=== PATIENT | male | born 1975 ===

== ENCOUNTER → 2018-06-08 | Day surgery (SDC) | payer OTHER ==
[~2018-06-08] VITALS: Ht 182.9 cm; Wt 163.3 kg
[2018-06-08] VITALS (12 sets, daily range): BP systolic 128–165; BP diastolic 48–99
[~2018-06-08] MED LIST: Bupivacaine 0.5% Inj 30 ml vial INJ ONE; Bupivacaine w/Epi 0.25% 30ml Vial INJ ONE; D5 1/2NS 1,000 ML IV SCH; DiphenhydrAMINE 50mg/ml Inj IVP PRN; Duramorph PF 10mg/10ml amp EPIDUR ONE; HYDROmorphone 1mg/ml Carpuject SUBQ PRN; Kenalog-40 1ml Vial ONE; Ketorolac 30mg Inj IV PRN; Ketorolac 30mg Inj ONE; LR 1000ml 1,000 ML IVLG SCH; LR 1000ml ONE; Lidocaine 1% 10mg/ml/Epi 0.005mg/ml 30ml vial INJ ONE; Lidocaine 1% MPF 10mg/ml 5ml ONE; Meperidine 50mg/ml Inj(FOR RIGORS ONLY) IV PRN; Midazolam 2mg/2ml Inj ONE; Morphine Sulfate PF 10 ML ONE; NKM; NS Irrig 4000ml IRRIG ONE; Norco 5mg/325mg tab ORAL PRN; Propofol 200mg/20ml IV ONE; Tylenol #3 tab (300mg/30mg) ORAL PRN; ceFAZolin 1gm IVPB IVPB ONE; celeBREX 200mg Cap **SURGERY PATIENTS ONLY ORAL ONE; fentaNYL 100 mcg/2 mL IV ONE; oxyCONTIN 20mg tab ORAL ONE
--- NOTE | 2018-06-08 07:15 | Anethesia Preoperative Eval ---
Anesthesia Pre-op PMH/ROS General Date of Evaluation: Jun 08, 2018 Time of Evaluation: 07:11 Anesthesiologist: Kasey ASA Score: ASA 3 Mallampati Score Class I : Soft palate, uvula, fauces, pillars visible Class II: Soft palate, uvula, fauces visible Class III: Soft palate, base of uvula visible Class IV: Only hard plate visible Mallampati Classification: Class III Surgeon: Colby Diagnosis: L knee pain Surgical Procedure: L knee scope Anesthesia History: none Family History: no anesthesia problems Allergies: Coded Allergies: No Known Allergies (Unverified , 06/07/18) Medications: see eMAR Patient NPO?: Yes Past Medical History Cardiovascular: Reports: HTN - no treatment; Denies: CAD, [place], valve dz, arrhythmia, other Pulmonary: Reports: ALE; Denies: asthma, COPD, other Gastrointestinal/Genitourinary: Reports: GERD; Denies: CRI, ESRD, other Neurologic/Psychiatric: Denies: dementia, CVA, depression/anxiety, TIA, other Endocrine: Denies: DM, hypothyroidism, steroids, other HEENT: Denies: cataract (L), cataract (R), glaucoma, [place]ELSON [place] (L), N[place] (R), other Hematology/Immune: Reports: DVT - h/o; Denies: anemia, bleeding disorder, other Musculoskeletal/Integumentary: Reports: edema - bilateral LE grade 2; Denies: OA, RA, DJD, DDD, other Other: obesity - morbid obesity PMH Narrative: as above PSxH Narrative: none Anesthesia Pre-op Phys. Exam Physician Exam Last Vital Signs Date Time Temp Pulse Resp B/P (MAP) Pulse Ox O2 Delivery O2 Flow Rate FiO2 06/08/18 05:52 97.5 79 18 165/84 95 Room Air Constitutional: NAD Neurologic: CN 2-12 intact Cardiovascular: RRR, no M/R/G Respiratory: CTA Gastrointestinal: other - obesity Airway Exam Mallampati Score: Class III MO: full Neck: short ROM: full Teeth: missing Dentures: no upper, no lower Anesthesia Pre-op A/P Labs see chart Studies Pre-op Studies: EKG - NSR, CXR - WNL Risk Assessment & Plan Assessment: ASA 3 Plan: GA with LMA Status Change Before Surgery: No Pre-Antibiotics Dru gr. Ancef Given Within 1 Hr of Incision: Yes Time Given: 07:40 Michele Parks MD Jun 08, 2018 07:15
--- NOTE | 2018-06-08 07:45 | Operative Note - PDOC ---
Operative Note Operative Note Pre-op Diagnosis: left knee medial menisuc tear Procedure: see op report Post-op Diagnosis: same as pre-op plus Operative Findings: consistent w/pre-op dx studies Anesthesia: MAC Specimen: none Complications: none Condition: stable Estimated Blood Loss: none Implant(s) used?: No Jasen Bowman MD Jun 08, 2018 07:45
--- NOTE | 2018-06-08 07:45 | Pre-Procedure Note/Attestation ---
Pre-Procedure Note/Attestation Complete Prior to Procedure Planned Procedure: left Procedure Narrative: knee arthroscopy medial menisectomy Indications for Procedure Pre-Operative Diagnosis: left knee medial menisuc tear Attestation I attest that I discussed the nature of the procedure; its benefits; risks and complications; and alternatives (and the risks and benefits of such alternatives ), prior to the procedure, with the patient (or the patient's legal lead customer service representative). I attest that, if there was a reasonable possibility of needing a blood transfusion, the patient (or the patient's legal lead customer service representative) was given the [facility] standardized written summary, pursuant to the Tani Michelle Blood Safety Act ([place] Health and Safety Code # 1645, as amended). I attest that I re-evaluated the patient just prior to the surgery and that there has been no change in the patient's H&P, except as documented below: Jasen Bowman MD Jun 08, 2018 07:45
--- NOTE | 2018-06-08 08:45 | Immediate Post-Op Evaluation ---
Immediate Post-Op Evalulation Immediate Post-Op Evalulation Procedure: L knee arthroscopy meniscectomy Date of Evaluation: Jun 08, 2018 Time of Evaluation: 08:44 IV Fluids: 600 Blood Products: none Estimated Blood Loss: min Urinary Output: none Blood Pressure Systolic: 148 Blood Pressure Diastolic: 76 Pulse Rate: 74 Respiratory Rate: 22 O2 Sat by Pulse Oximetry: 99 Temperature (Fahrenheit): 97.6 Pain Score (1-10): 1 Nausea: No Vomiting: No Complications none Patient Status: reacts, patent, none Hydration Status: adequate Michele Parks MD Jun 08, 2018 08:45
--- NOTE | 2018-06-08 11:14 | 48 Hour Post Anesthesia Eval ---
Post Anesthesia Evaluation Procedure: L knee arthroscopy meniscectomy Date of Evaluation: Jun 08, 2018 Time of Evaluation: 11:13 Blood Pressure Systolic: 148 0: 76 Pulse Rate: 68 Respiratory Rate: 22 Temperature (Fahrenheit): 97.6 O2 Sat by Pulse Oximetry: 98 Airway: patent Nausea: No Vomiting: No Pain Intensity: 2 Hydration Status: adequate Cardiopulmonary Status: stable Mental Status/LOC: patient returned to baseline Follow-up Care/Observations: n/a Post-Anesthesia Complications: none Follow-up care needed: ready to discharge Michele Parks MD Jun 08, 2018 11:14
--- NOTE | 2018-06-08 15:01 | Operative Note - Dictated ---
DATE OF OPERATION: 06/08/2018 PREOPERATIVE DIAGNOSIS: Left knee possible medial and lateral meniscus tear to his left knee chondral damage. POSTOPERATIVE DIAGNOSES: 1. 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 2. Grade 2 chondral damage, superior patellar facet. 3. Hypertrophic synovial tissue medial and lateral patellofemoral compartment. 4. Grade 2 chondral damage medial femoral condyle. PROCEDURES: 1. Left knee diagnostic arthroscopy and synovectomy. 2. Medial and lateral patellofemoral compartment. 3. Chondroplasty patellofemoral compartment. SURGEON: Jasen Bowman M.D. ANESTHESIA: MAC. INDICATION FOR PROCEDURE: The patient is a pleasant gentleman, who has had progressive left knee pain. He had MRI, which showed possible intrameniscal degeneration with extension of the tear to complete tear. He failed conservative treatment, still had significant pain and discomfort therefore elected to undergo left knee diagnostic arthroscopy with possible meniscectomy. He had evidence of subchondral damage as well; therefore a possible chondroplasty and synovectomy was all discussed with the patient. Risks, limitations, expectations and complications of procedure were discussed in detail. All questions addressed. DESCRIPTION OF PROCEDURE: After informed consent was obtained, the patient was brought to the operating room, placed the patient under anesthesia. Tourniquet was applied to left proximal thigh. Left leg was prepped and draped in a sterile manner. A 0.25% Marcaine injected into left knee. Portal sites injected with 1% lidocaine with epinephrine. Inferolateral stab incision was then made. Trocar was introduced into the knee joint with some resistance somewhat through the lateral gutter. There was hypertrophic patellar fat pad and synovial tissue making visualization of the patellofemoral compartment somewhat difficult. There was grade 1 and grade 2 damage to the superior aspect of the patella. There was hypertrophic somewhat thickened end of plica. Medial compartment was entered. Medial working portal was established and excision of the fat pad and synovial tissue was performed to better visualize the medial compartment. Once this was done, there was noted to have grade 1 chondral thinning of the medial femoral condyle. The meniscus was probed noted to be intact. The camera was repositioned in the intercondylar notch. There was hypertrophic ligamentum mucosum on the fat pad which was excised to better visualize the ACL which was intact. Lateral compartment was entered free from the meniscal chondral damage. Camera was then placed in the medial working portal. Excision of the fat pad and the synovectomy was completed on the lateral gutter. Once that was done, the camera was repositioned in the patellofemoral compartment and synovectomy was completed. At this point, attention turned towards the area of the chondroplasty. Gentle chondroplasty was performed. Once this was completed, the instruments were removed. Portal sites were closed with 3-0 Monocryl sutures. Steri-Strips and a sterile dressing were applied. The patient was awoken and taken to recovery room in stable vital signs. ESTIMATED BLOOD LOSS: Minimal. COMPLICATIONS: None. SPECIMENS: None. IMPLANTS: None. Jasen Bowman M.D. DR: Micah JOB#: [id number] CC:
== END | disposition home or self-care (01) ==
LOC: SUR 05:04
DX: M67.262 Synovial hypertrophy, not elsewhere classified, left lower leg (principal); M23.301 Other meniscus derangements, unspecified lateral meniscus, left knee; M23.303 Other meniscus derangements, unspecified medial meniscus, right knee; M24.10 Other articular cartilage disorders, unspecified site; I10 Essential (primary) hypertension; G47.33 Obstructive sleep apnea (adult) (pediatric); K21.9 Gastro-esophageal reflux disease without esophagitis; Z86.718 Personal history of other venous thrombosis and embolism; E66.9 Obesity, unspecified; Z68.42 Body mass index [BMI] 45.0-49.9, adult
CPT/HCPCS: 29876; 29877; J0690; J1885; J2250; J2274; J2405; J2704; J3010; J3301; J3490; 94003; 94150